=== PATIENT | female | born 1995 | race Caucasian/White ===

== ENCOUNTER 2019-07-27 18:06 | Emergency (ER) | payer OTHER ==
[2019-07-27] MEDS: ONDANSETRON (ODT) 4 MG TAB ODT (20:31)
== END 2019-07-27 22:36 | disposition home or self-care (01) ==
LOC: FTE 18:06
DX: O21.0 Mild hyperemesis gravidarum (principal); R10.2 Pelvic and perineal pain; Z3A.09 9 weeks gestation of pregnancy
CPT/HCPCS: 36415; 76805; 80053; 81001; 81003; 83690; 84702; 85025; 99284-25